=== PATIENT | male | born 1960 | race Caucasian/White ===

== ENCOUNTER → 2018-01-18 | Day surgery (SDC) | payer BC ==
[~2018-01-18] MED LIST: Lactated Ringers 1,000 ML IV SCH; Propofol 200 MG/20 ML SDV IV ONE
--- NOTE | 2018-01-18 13:49 | OR ---
DATE OF OPERATION: 01/18/2018 PREOPERATIVE DIAGNOSIS: FOLLOW UP POLYPS. POSTOPERATIVE DIAGNOSIS: FOLLOW UP POLYPS. SURGEON: Ruben Kaur MD PROCEDURE: FULL-LENGTH COLONOSCOPY WITH SNARE POLYPECTOMY X3 POLYP AND FORCEPS POLYP REMOVAL X2. ANESTHESIA: [employer]. COMPLICATIONS: None. SPECIMEN: 1. Villous adenomas x3, cecum. 2. Hyperplastic polyps, rectal vault. FINDINGS: 1. Full-length colonoscopy. 2. Three villous adenomas, cecal pouch. 3. Hyperplastic polyps, rectal vault. RECOMMENDATIONS: Follow up colonoscopy in 3 years. INDICATIONS: The patient has a prior history of polyp removal. He is due for a colonoscopy follow up. DESCRIPTION OF PROCEDURE: The patient is prepped and draped, placed in the left lateral decubitus position. A lubricated Olympus colonoscope was inserted and easily advanced to the cecum and directly visualized the ileocecal valve and appendiceal orifice. The bowel prep was adequate. Upon withdrawal of the scope right in the cecal pouch, the patient had three separate villous adenomas. These were all around 0.5 cm in size, now removed with a snare and suctioned into polyp trap #1 without difficulty. The rest of the ascending, transverse, and descending colons were benign throughout the sigmoid colon. I could find no signs of any polyps, mass, ulceration, or bleeding sites. No vascular abnormalities or signs of colitis. No significant diverticular disease. The rectal vault was benign. Retroflexion showed couple perianal hyperplastic polyps, which were flat. Both were biopsied and removed in their entirety with cold forceps. Air was then suctioned, scope removed without complication. HIGINIO/GWEN /[id number] cc: [place] [id number]
== END ==
LOC: CC.SDS 09:01
PROVIDERS: ATTEND Family Medicine
DX: Z12.11 Encounter for screening for malignant neoplasm of colon (principal); D12.0 Benign neoplasm of cecum; K62.1 Rectal polyp; M19.90 Unspecified osteoarthritis, unspecified site; N40.0 Benign prostatic hyperplasia without lower urinary tract symptoms; E78.5 Hyperlipidemia, unspecified; E78.00 Pure hypercholesterolemia, unspecified; E55.9 Vitamin D deficiency, unspecified; J21.9 Acute bronchiolitis, unspecified; Z79.82 Long term (current) use of aspirin; Z79.899 Other long term (current) drug therapy; Z86.010 Personal history of colon polyps; Z87.891 Personal history of nicotine dependence
CPT/HCPCS: J2704; J7120